=== PATIENT | male | born 1945 | race Caucasian/White ===

== ENCOUNTER 2018-11-01 09:10 | Inpatient (IN) | payer MEDICARE, OTHER ==
[~2018-11-01] VITALS: Ht 175.3 cm; Wt 83.7 kg
[2018-11-01 13:59] LABS: Alanine Aminotransfer (ALT/SGP 22 U/L (12-78); Albumin, Blood 3.3 g/dL (3.4-5.0); Alk Phos 51 U/L (50-136); Anion Gap 16 mmol/L (6-16); Aspartate Aminotrans (AST/SGOT 30 U/L (12-37); Bilirubin, Total 1.2 mg/dL (0.1-1.0); Blood Urea Nitrogen 4 mg/dL (8-24); Bun/Creatinine Ratio 6.6 (12.0-20.0); CO2, Blood 15 mmol/L (21-32); Calcium, Blood 7.8 mg/dL (8.5-10.1); Chloride, Blood 79 mmol/L (98-108); Globulin, Blood 3.4 g/dL (2.2-4.0); Glomerular Filtration Rate >60 (60-); Glucose, Blood 63 mg/dL (70-99); Potassium, Blood 3.2 mmol/L (3.5-5.5); Sodium, Blood 110 mmol/L (136-145); Total Protein, Blood 6.7 g/dL (6.4-8.2)
[2018-11-01 14:22] LABS: Source, Urine Clean Catch
[2018-11-01 14:23] LABS: Ethanol (Alcohol), Blood, Med <3 mg/dL
[2018-11-01 14:29] LABS: Osmolality, Serum 226 mos/KG (275-300)
[2018-11-01 15:45] LABS: BASOPHILS ABSOLUTE AUTO 0.04 K/mm3 (0.00-0.23); BASOPHILS PERCENT AUTO 1 % (0-2); EOSINOPHILS ABSOLUTE AUTO 0.25 K/mm3 (0.00-0.68); EOSINOPHILS PERCENT AUTO 5 % (0-6); Hemoglobin 15.1 g/dL (13.5-17.5); IMMATURE GRAN ABSOLUTE AUTO 0.03 K/mm3 (0.00-0.10); IMMATURE GRAN PERCENT AUTO 1 % (0-1); LYMPHOCYTES PERCENT AUTO 26 % (21-46); MONOCYTES ABSOLUTE AUTO 0.52 K/mm3 (0.16-1.47); MONOCYTES PERCENT AUTO 10 % (4-13); Mean Corpuscular HGB 31.7 pg (26.0-34.0); Mean Platelet Volume 8.1 fL (9.1-12.4); NEUTROPHILS ABSOLUTE AUTO 3.09 K/mm3 (1.96-9.15); NEUTROPHILS PERCENT AUTO 58 % (41-73); Platelet Count 243 K/mm3 (150-400); RDW Coefficient Variation 11.1 % (11.7-14.2); RDW Standard Deviation 32.9 fL (35.1-46.3); Red Blood Cell Count 4.76 M/mm3 (4.30-5.90); White Blood Cell Count 5.33 K/mm3 (4.00-11.30)
[2018-11-01 15:50] LABS: Mean Corpuscular HGB Conc 35.1 g/dL (31.5-36.5); Mean Corpuscular Volume 90 fL (80-100)
[2018-11-01 15:52] LABS: U Amphetamine Screen Not Detected; U Barbituate Screen Not Detected; U Benzodiazapine Screen Not Detected; U Buprenorphine Screen Not Detected; U Cannabinoids Screen Not Detected; U Cocaine Screen Not Detected; U Methadone Screen Not Detected; U Methamphetamine Screen Not Detected; U Opiates Screen Not Detected; U Oxycodone Screen Not Detected; U Phencyclidine Screen Not Detected; U Propoxyphene Screen Not Detected
[2018-11-01 16:00] LABS: Appearance, Urine Hazy (Clear); Bilirubin, Urine Neg (Neg); Blood, Urine 2+ (Neg); Color, Urine Pale Yellow (P-Yellow); Glucose Qualitative, Urine Neg (Neg); Ketones, Urine 4+ (Neg); Leukocyte Esterase, Urine Neg (Neg); Nitrite, Urine Neg (Neg); Protein, Urine Neg (Neg); Urobilinogen, Urine NORM (Normal)
[2018-11-01 16:01] LABS: Bacteria Rare /hpf; Red Blood Cells, Urine 0-2 /hpf (0-2); Squamous Epithelial Cells Rare /hpf (Few); White Blood Cells, Urine 0-2 /hpf (0-5)
[2018-11-01 19:57] LABS: Thyroid Stimulating Hormone 0.112 uIU/mL (0.360-4.800)
[2018-11-01 19:58] LABS: Anion Gap 15 mmol/L (6-16); Blood Urea Nitrogen 3 mg/dL (8-24); Bun/Creatinine Ratio 5.2 (12.0-20.0); CO2, Blood 15 mmol/L (21-32); Calcium, Blood 7.5 mg/dL (8.5-10.1); Chloride, Blood 84 mmol/L (98-108); Creatinine, Blood 0.58 mg/dL (0.60-1.20); Glomerular Filtration Rate >60 (60-); Glucose, Blood 72 mg/dL (70-99); Potassium, Blood 2.9 mmol/L (3.5-5.5); Sodium, Blood 114 mmol/L (136-145)
[2018-11-01 22:08] LABS: Free Thyroxine 0.8 ng/dL (0.70-1.60)
[2018-11-01 22:10] LABS: Triiodothyronine, Free 0.83 pg/mL (2.18-3.98)
[2018-11-02 02:38] LABS: BASOPHILS ABSOLUTE AUTO 0.03 K/mm3 (0.00-0.23); BASOPHILS PERCENT AUTO 1 % (0-2); EOSINOPHILS ABSOLUTE AUTO 0.24 K/mm3 (0.00-0.68); EOSINOPHILS PERCENT AUTO 4 % (0-6); IMMATURE GRAN ABSOLUTE AUTO 0.02 K/mm3 (0.00-0.10); IMMATURE GRAN PERCENT AUTO 0 % (0-1); LYMPHOCYTES ABSOLUTE AUTO 1.28 K/mm3 (0.84-5.20); LYMPHOCYTES PERCENT AUTO 23 % (21-46); MONOCYTES ABSOLUTE AUTO 0.45 K/mm3 (0.16-1.47); MONOCYTES PERCENT AUTO 8 % (4-13); NEUTROPHILS ABSOLUTE AUTO 3.66 K/mm3 (1.96-9.15); NEUTROPHILS PERCENT AUTO 65 % (41-73); Platelet Count 227 K/mm3 (150-400); RDW Coefficient Variation 11.4 % (11.7-14.2); RDW Standard Deviation 34.1 fL (35.1-46.3); Red Blood Cell Count 4.67 M/mm3 (4.30-5.90); White Blood Cell Count 5.68 K/mm3 (4.00-11.30)
[2018-11-02 02:52] LABS: Hemoglobin 14.8 g/dL (13.5-17.5); Mean Corpuscular HGB 31.7 pg (26.0-34.0); Mean Corpuscular Volume 92 fL (80-100)
[2018-11-02 02:53] LABS: Mean Corpuscular HGB Conc 34.5 g/dL (31.5-36.5)
[2018-11-02 02:55] LABS: CHOL/HDL RATIO 4.8; Cholesterol 168 mg/dL (50-200); HDL Cholesterol 35 mg/dL (>39); Low Density Lipoprotein Chol 104 mg/dL (0-110); Magnesium, Blood 1.5 mg/dL (1.6-2.4); Triglycerides 143 mg/dL (30-160); Very Low Density Lipoprot Chol 28 mg/dL (6-32)
[2018-11-02 02:56] LABS: Anion Gap 14 mmol/L (6-16); Blood Urea Nitrogen 3 mg/dL (8-24); Bun/Creatinine Ratio 4.1 (12.0-20.0); CO2, Blood 18 mmol/L (21-32); Calcium, Blood 7.4 mg/dL (8.5-10.1); Chloride, Blood 85 mmol/L (98-108); Creatinine, Blood 0.73 mg/dL (0.60-1.20); Glomerular Filtration Rate >60 (60-); Glucose, Blood 59 mg/dL (70-99); Potassium, Blood 3.3 mmol/L (3.5-5.5); Sodium, Blood 117 mmol/L (136-145)
--- NOTE | 2018-11-02 04:26 | NUR ---
SHIFT SUMMARY: PATIENT ARRIVED TO ICU16 AT APPROX 0010 VIA GURNEY FROM ER. PATIENT ALERT AND ORIENTED, ABLE TO PIVOT TRANSFER FROM GURNEY TO BED WITH MODERATE ASSIST. PATIENT EXPERIENCING BLURRY/DOUBLE VISION AND GAIT IMBALANCE, SKIN C/D/I. ADMISSION COMPLETED. 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 PITOSIS OF RIGHT EYE NOTED, LEFT LEG DRIFT NOTED. VSS AND LABS IMPROVING, PATIENT COMPLIANT WITH CARE, BED LOW AND LOCKED, CALL LIGHT WITHIN REACH.
[2018-11-02 09:14] LABS: Anion Gap 12 mmol/L (6-16); Blood Urea Nitrogen 3 mg/dL (8-24); Bun/Creatinine Ratio 4.7 (12.0-20.0); CO2, Blood 19 mmol/L (21-32); Calcium, Blood 7.8 mg/dL (8.5-10.1); Chloride, Blood 86 mmol/L (98-108); Creatinine, Blood 0.65 mg/dL (0.60-1.20); Glomerular Filtration Rate >60 (60-); Glucose, Blood 73 mg/dL (70-99); Potassium, Blood 3.5 mmol/L (3.5-5.5); Sodium, Blood 117 mmol/L (136-145)
--- NOTE | 2018-11-02 10:48 | NUR ---
PT TO MRI WITH TRANSPORTER. DR. REID GAVE OK FOR PT TO BE MED NO TELE.
--- NOTE | 2018-11-02 12:40 | NUR ---
PT BACK FROM MRI, TOLERATED IT WELL. CONTINUES TO BE ALERT AND ORIENTED. HE STILL COMPLAINS OF DOUBLE VISION AND KEEPS HIS R EYE CLOSED MOST OF THE TIME TO COMPENSATE FOR IT. HE IS EATING SMALL PORTIONS OF HIS MEALS. HE SAYS WHEN HE EATS IT FEELS LIKE IT IS STUCK IN HIS GUT. HE HAS NOT HAD ANY VOMITING OR DIARRHEA. NO OTHER COMPLAINTS FROM PT. CONTINUING TO MONITOR.
[2018-11-02 14:35] LABS: Anion Gap 9 mmol/L (6-16); Blood Urea Nitrogen 5 mg/dL (8-24); Bun/Creatinine Ratio 7.5 (12.0-20.0); CO2, Blood 22 mmol/L (21-32); Calcium, Blood 7.7 mg/dL (8.5-10.1); Chloride, Blood 90 mmol/L (98-108); Creatinine, Blood 0.67 mg/dL (0.60-1.20); Glomerular Filtration Rate >60 (60-); Glucose, Blood 85 mg/dL (70-99); Potassium, Blood 3.6 mmol/L (3.5-5.5); Sodium, Blood 121 mmol/L (136-145)
--- NOTE | 2018-11-02 16:27 | NUR ---
SHIFT SUMMARY: PT HAS BEEN RESTING QUIETLY IN BED TODAY. HE REMAINS ALERT AND ORIENTED. SOME GENERALIZED WEAKNESS BUT IS ABLE TO STAND AT THE BEDSIDE WITH ASSISTANCE TO VOID. PT HAS BEEN IMPULSIVE, NOT CALLING FOR ASSISTANCE BEFORE STANDING DESPITE MULTIPLE REMINDERS SO BED ALARM HAS BEEN ON. HE STILL COMPLAINS OF DIFFICULTY SEEING D/T DOUBLE VISION. LUNGS ARE CLEAR, RA, SR, BP STABLE. NO OTHER CHANGES FROM EARLIER ASSESSMENTS. ATTEMPTED TO RETURN CALL FROM PT'S BROTHER BUT IT WENT TO [employer] AND INBOX WAS FULL.
[2018-11-02 21:52] LABS: Anion Gap 10 mmol/L (6-16); Blood Urea Nitrogen 5 mg/dL (8-24); Bun/Creatinine Ratio 7.2 (12.0-20.0); CO2, Blood 19 mmol/L (21-32); Calcium, Blood 7.8 mg/dL (8.5-10.1); Chloride, Blood 94 mmol/L (98-108); Creatinine, Blood 0.69 mg/dL (0.60-1.20); Glomerular Filtration Rate >60 (60-); Glucose, Blood 84 mg/dL (70-99); Potassium, Blood 3.5 mmol/L (3.5-5.5); Sodium, Blood 123 mmol/L (136-145)
[2018-11-03 03:55] LABS: Anion Gap 9 mmol/L (6-16); Blood Urea Nitrogen 4 mg/dL (8-24); Bun/Creatinine Ratio 6.8 (12.0-20.0); CO2, Blood 19 mmol/L (21-32); Calcium, Blood 7.6 mg/dL (8.5-10.1); Chloride, Blood 97 mmol/L (98-108); Creatinine, Blood 0.59 mg/dL (0.60-1.20); Glomerular Filtration Rate >60 (60-); Glucose, Blood 71 mg/dL (70-99); Potassium, Blood 3.4 mmol/L (3.5-5.5); Sodium, Blood 125 mmol/L (136-145)
--- NOTE | 2018-11-03 05:56 | NUR ---
SHIFT SUMMARY: PATIENT MORE COMPLIANT WITH USING CALL LIGHT THIS SHIFT, GOOD URINE OUTPUT AND A STEADY RISE IN SODIUM LEVELS. PATIENT STILL EXPERIENCING DOUBLE VISION AND BLURRY VISION. PATIENT APPEARS TO BE MORE STEADY ON HIS FEET, VSS, NO OTHER ISSUES NOTED.
[2018-11-03 09:52] LABS: Anion Gap 8 mmol/L (6-16); Blood Urea Nitrogen 3 mg/dL (8-24); Bun/Creatinine Ratio 4.8 (12.0-20.0); CO2, Blood 22 mmol/L (21-32); Calcium, Blood 7.8 mg/dL (8.5-10.1); Chloride, Blood 94 mmol/L (98-108); Creatinine, Blood 0.63 mg/dL (0.60-1.20); Glomerular Filtration Rate >60 (60-); Glucose, Blood 81 mg/dL (70-99); Potassium, Blood 3.4 mmol/L (3.5-5.5); Sodium, Blood 124 mmol/L (136-145)
[2018-11-03 15:21] LABS: Anion Gap 8 mmol/L (6-16); Blood Urea Nitrogen 4 mg/dL (8-24); Bun/Creatinine Ratio 5.1 (12.0-20.0); CO2, Blood 22 mmol/L (21-32); Calcium, Blood 7.8 mg/dL (8.5-10.1); Chloride, Blood 97 mmol/L (98-108); Creatinine, Blood 0.79 mg/dL (0.60-1.20); Glomerular Filtration Rate >60 (60-); Glucose, Blood 112 mg/dL (70-99); Potassium, Blood 3.6 mmol/L (3.5-5.5); Sodium, Blood 127 mmol/L (136-145)
--- NOTE | 2018-11-03 16:23 | NUR ---
SHIFT SUMMARY PT RESTING IN BED THROUGHOUT THE DAY. ALERT AND ORIENTED X3. DENIES PAIN AT THIS TIME. PT C/O DOUBLE VISION AND HAVING TROUBLE WITH HIS EYES, REQUESTING A PATCH FOR HIS RIGHT EYE TO STOP THE DOUBLE VISION. PATCH PROVIDED AND PLACED TO RIGHT EYE, PT STATES IT HELPED ALOT. LUNG SOUNDS CLEAR, DIMINISHED BASES. VOIDING PER URINAL, CLEAR YELLOW URINE. PT HAS A GOOD APPETITE TODAY. WILL CONTINUE TO MONITOR.
--- NOTE | 2018-11-03 20:20 | NUR ---
PATIENT RESTING QUIETLY IN BED LISTENING TO THE TV, EYE PATCH IN PLACE TO RIGHT EYE. PATIENT VERBALIZED THAT THE PATCH HELPS WITH THE DOUBLE VISION, BUT HE STILL HAS DIFFICULTY FOCUSING ON THE TV. PATIENT ABLE TO REPOSITION SELF IN BED WITHOUT DIFFICULTY. PATIENT VERBALIZED THAT HE HAS DIFFICULTY WITH HIS BALANCE STILL. BED ALARM ON. PATIENT A&O X3 SLIGHTLY FORGETFUL REGARDING THE YEAR.
--- NOTE | 2018-11-04 01:53 | NUR ---
PATIENT AWAKE. USING CALL LIGHT APPROPRIATELY. ABLE TO STAND AT SIDE OF BED TO VOID, VERBALIZED THAT HIS LEGS FEEL LIKE RUBBER. PATIENT ABLE TO STAND WITH MIN SUPPORT WHILE URINATING.
[2018-11-04 03:24] LABS: Albumin, Blood 2.8 g/dL (3.4-5.0); Anion Gap 6 mmol/L (6-16); Blood Urea Nitrogen 4 mg/dL (8-24); Bun/Creatinine Ratio 5.8 (12.0-20.0); CO2, Blood 24 mmol/L (21-32); Calcium, Blood 7.5 mg/dL (8.5-10.1); Chloride, Blood 101 mmol/L (98-108); Creatinine, Blood 0.69 mg/dL (0.60-1.20); Glomerular Filtration Rate >60 (60-); Glucose, Blood 105 mg/dL (70-99); Phosphorus, Blood 1.6 mg/dL (2.5-4.9); Potassium, Blood 3.3 mmol/L (3.5-5.5); Sodium, Blood 131 mmol/L (136-145)
--- NOTE | 2018-11-04 06:05 | NUR ---
SUMMARY PATIENT AWAKENS EASILY, VERBALIZED THAT AT FIRST THE DOUBLE VISION WAS BETTER, BUT THEN AFTER 1-2 MIN IT RETURNED. PATIENT REPLACED EYE PATCH TO RIGHT EYE. PATIENT ABLE TO STAND AT BEDSIDE TO VOID, CONTINUES TO BE UNSTEADY WITH POOR BALANCE. PATIENT VERBALIZED THAT HIS LEGS CONTINUE TO FEEL LIKE RUBBER.
--- NOTE | 2018-11-04 09:49 | NUR ---
ASSUMED CARE / DR. BINGHAM: REPORT RECEVIED FROM DANTE Uriostegui RN. ASSUMED CARE OF THIS PT AT APPROX 0700. ON ASSESSMENT, THE PT IS AWAKE, PLEASANT & COOPERATIVE. HE IS SOMEWHAT FORGETFUL, BUT OVERALL A&O TO PERSON, PLACE, EVENT, TIME, ETC. BED ALARM ON R/T FORGETFULNESS & WEAKNESS. PROVIDER AT BEDSIDE TO SEE PT. NO NEW ORDERS AT THIS TIME. WILL CONTINUE TO MONITOR & UPDATE NEEDED.
--- NOTE | 2018-11-04 16:19 | NUR ---
TRANSFER TO MED FLOOR: NO ACUTE CHANGES THIS SHIFT. PT REMAINS A&O, BUT SLIGHTLY FORGETFUL. HE CONTINUES USING CALL LIGHT APPROPRIATELY & IS TOLERATING PO INTAKE WELL. REPORT HAS BEEN GIVEN TO JUDITH Larios RN TO ASSUME CARE ON MED FLOOR. PT TX TO ROOM 330 VIA WC BY PAUL JENKINS. ALL OF PT's BELONGINGS & HIS CHART HAVE BEEN TAKEN TO NEW ROOM W/ HIM.
--- NOTE | 2018-11-04 18:18 | NUR ---
1613 PT TRANSFERED TO MEDICAL FLOOR FROM ICU. PT REQUIRED TWO PERSON ASSIST TO SAFELTY TRANSFER TO BED FROM W/C. PT DENIES PAIN, SOB, N/V. PT CONTINUES WITH DIPLOPIA. REPORTS SOME IMPTOVED BALANCE WITH EYE PATCH TO R EYE.
--- NOTE | 2018-11-04 19:25 | NUR ---
PATIENT SITTING IN BED, EYE PATCH TO LEFT EYE. STATES DOUBLE VISION THAT WORSENS WHEN PATCH IS OFF. PUPILS REACTIVE AND NORMAL. STILL GETS DIZZY WHEN PATCH IS REMOVED. DENIED SOB, OR CHEST PAIN. ABDOMIN SOFT, BT X 4, NO BM NOTED FOR TODAY, GOING ON DAY 3 WILL HAVE TO GET BOWEL CARE ORDERED. LUNG SOUNDS ARE CLEAR THROUGHOUT, HR REGULAR DENIES PALPITATIONS OR RACING. GAVE GLASS OF WATER, AND SL IV WITH 10CC NS. WILL CONTINUE TO MONTIOR.
--- NOTE | 2018-11-05 05:13 | NUR ---
SHIFT SUMMARY: ROBERT HAD A GOOD NIGHT. HIS DOUBLE VISION REMAINED UNCHANGED. HE WAS ABLE TO SLEEP WITH OUT THE EYE PATCH WITHOUT TO MUCH DIZZINESS. HE REMAINED PAIN FREE, UNCHANGED AND COOPERATIVE. SLEPT MOST OF THE NIGHT WAKING UP WITH BRIGHT EYES AND TALKATIVE. HOPING HE GETS BETTER SOON AND GETS OUT OF THE HOSPITAL. VS REMAINED STABLE, MEDS GIVEN PER EMAR, IV REMOVED IN RIGHT WRIST DUE TO PAIN AND REDNESS. IV IN LEFT FA REMAINS PATENT AND SL. NO OTHER CHANGES TO REPORT WILL REPORT TO DAY SHIFT RN.
[2018-11-05 07:52] LABS: Anion Gap 5 mmol/L (6-16); Blood Urea Nitrogen 3 mg/dL (8-24); Bun/Creatinine Ratio 4.9 (12.0-20.0); CO2, Blood 30 mmol/L (21-32); Chloride, Blood 98 mmol/L (98-108); Creatinine, Blood 0.61 mg/dL (0.60-1.20); Free Thyroxine 0.65 ng/dL (0.70-1.60); Glomerular Filtration Rate >60 (60-); Glucose, Blood 97 mg/dL (70-99); Phosphorus, Blood 2.3 mg/dL (2.5-4.9); Potassium, Blood 3.4 mmol/L (3.5-5.5); Prolactin 1.3 ng/mL (2.5-17.4); Sodium, Blood 133 mmol/L (136-145); Thyroxine (T4) 5.4 ug/dL (4.5-12.1)
--- NOTE | 2018-11-05 19:13 | NUR ---
SHIFT SUMMARY. PT'S STRENGTH AND BALANCE HAS IMPROVED WHEN COMPARED TO YESTERDAY, PT REQUIRES 1 ASSIST WITH FWW AND GB, PT AMBULATED TO BATHROOM WITH ASSISTANCE. PT REPORTS THAT HIS DOUBLES VISION SEEMS BETTER TODAY COMPARED TO YESTERDAY. PT DENIES PAIN, SOB, N/V. GOOD MEAL INTAKE. PT/OT EVAL COMPLETED TODAY.
[2018-11-06 05:34] LABS: Anion Gap 6 mmol/L (6-16); Blood Urea Nitrogen 7 mg/dL (8-24); Bun/Creatinine Ratio 10.8 (12.0-20.0); CO2, Blood 29 mmol/L (21-32); Calcium, Blood 8.4 mg/dL (8.5-10.1); Chloride, Blood 98 mmol/L (98-108); Creatinine, Blood 0.65 mg/dL (0.60-1.20); Glomerular Filtration Rate >60 (60-); Glucose, Blood 87 mg/dL (70-99); Phosphorus, Blood 3.3 mg/dL (2.5-4.9); Potassium, Blood 3.8 mmol/L (3.5-5.5); Sodium, Blood 133 mmol/L (136-145)
--- NOTE | 2018-11-06 05:44 | NUR ---
SHIFT SUMMARY: ROBERT HAD A VERY UNEVENTFUL NIGHT, HE REMAINED ASLEEP 90% OF THE SHIFT, WHEN HE WOKE THIS MORNING HIS DOUBLE VISION HAD GONE AWAY. STATES HE FEELS MUCH BETTER AND IS READY TO GO HOME TODAY. DENIED ANY PAIN OR DISCOMFORT, MEDS GIVEN PER EMAR, VS REMAINED STABLE. WILL REPORT TO DAY SHIFT RN.
[2018-11-06 15:08] LABS: FREE TESTOSTERONE(DIRECT) 0.7 pg/mL (6.6-18.1); SEX HORM BINDING GLOB, SERUM 251.6 nmol/L (19.3-76.4)
[2018-11-06] MEDS ORDERED: AMLO10 PO (17:42)
[2018-11-06] MEDS ORDERED: BISA10S PR (17:42)
[2018-11-06] MEDS ORDERED: ACET325 PO (17:42)
[2018-11-06] MEDS ORDERED: Prinivil10 MG PO (17:42)
[2018-11-06] MEDS ORDERED: DOCU100 PO (17:43)
[2018-11-06] MEDS ORDERED: LEVSOD50 PO (17:43)
[2018-11-06] MEDS ORDERED: GAVILAX17 GM PO (17:44)
[2018-11-06] MEDS ORDERED: THERA1 EACH PO (17:44)
[2018-11-06] MEDS ORDERED: SENN187 PO (17:46)
[2018-11-06] MEDS ORDERED: K-Phos Origina500 MG PO (17:46)
--- NOTE | 2018-11-06 18:14 | NUR ---
PT. DISCHARGED TO [facility] VIA WC TRANSPORT. REPORT CALLED TO CAMELIA SALGADO AT [facility]. PT. HAD A MODERATE-SIZED BOWEL MOVEMENT AFTER INSERTION OF DULCOLAX SUPPOSITORY. STOOL SENT TO LAB PER ORDERS.
[2018-11-06 19:51] LABS: Adenovirus F 40/41 Not Detected (NOT DETECT); Astrovirus Not Detected (NOT DETECT); Campylobacter Sp Not Detected (NOT DETECT); Cryptosporidium Not Detected (NOT DETECT); Cyclospora Cayetanensis Not Detected (NOT DETECT); E. Coli O157 Not Detected (NOT DETECT); Entamoeba Histolytica Not Detected (NOT DETECT); Enteroaggregative E. coli-EAEC Not Detected (NOT DETECT); Enteropathogenic E. coli-EPEC Not Detected (NOT DETECT); Enterotoxigenic E. coli-ETEC Not Detected (NOT DETECT); Giardia Lamblia Not Detected (NOT DETECT); Norovirus GI/GII Not Detected (NOT DETECT); Plesiomonas Shigelloides Not Detected (NOT DETECT); Rotavirus A Not Detected (NOT DETECT); Salmonella Sp Not Detected (NOT DETECT); Sapovirus Not Detected (NOT DETECT); Shiga Toxin-prod E. coli-STEC Not Detected (NOT DETECT); Shigella/Enteroin E. coli-EIEC Not Detected (NOT DETECT); Vibrio Cholerae Not Detected (NOT DETECT); Vibrio Sp Not Detected (NOT DETECT); Yersinia Enterocolitica Not Detected (NOT DETECT)
== END 2018-11-06 18:02 | DRG 641 ==
LOC: ER 09:10 → ICUW 18:10 → MEDS 18:10 → ERHOLD 18:10 → ICUW 23:21 → MEDS 11-04 16:13
PROVIDERS: Emergency Medicine; Internal Medicine Endocrinology, Diabetes & Metabolism; ADMIT Student in an Organized Health Care Education/Training Program
DX: E87.1 Hypo-osmolality and hyponatremia (principal); E23.0 Hypopituitarism; E87.6 Hypokalemia; E03.8 Other specified hypothyroidism; H53.2 Diplopia; J44.9 Chronic obstructive pulmonary disease, unspecified; I10 Essential (primary) hypertension; E05.90 Thyrotoxicosis, unspecified without thyrotoxic crisis or storm; E23.6 Other disorders of pituitary gland; E86.0 Dehydration; Z87.891 Personal history of nicotine dependence
CPT/HCPCS: 0097U; 36415; 70450; 70553; 71046; 76536; 80048; 80053; 80061; 80069; 81001; 82024; 82088; 82533; 82947; 83001; 83002; 83735; 83930; 83935; 84146; 84270; 84300; 84402; 84403; 84436; 84439; 84443; 84481; 84484; 84560; 85025; 93005; 93010; 96361; 96374; 97112; 97116; 97161; 97165; 97530; 99285-25; A9577; G0480; J1650; J3411; J3475; J7030; J7040; J7042; J7799